=== PATIENT | male | born 1960 | race Caucasian/White ===

== ENCOUNTER → 2016-09-23 | Outpatient (REF) ==
--- NOTE | 2016-09-23 15:10 | REP ---
Clinical: Pain and disability. Technique: AP, lateral, bilateral oblique and sunrise views of the right knee. Findings: Mild arthritic degenerative changes include cortical irregularity to the femoral condyles, increased sclerosis along the medial tibial surface and posterior patellar margin with associated medial compartment and patellofemoral joint space narrowing. No acute fracture or dislocation. AP and lateral views demonstrate a small curvilinear foreign body in the patellar tendon at the level of the proximal tibia. Impression: Mild arthritic degenerative changes. Signed by Dae Conner MD 09/23/2016 03:00 P
--- NOTE | 2016-09-23 15:32 | REP ---
LUMBAR SPINE, THREE VIEWS: HISTORY: Degenerative disc disease. There is no acute fracture or subluxation. The L2-3 through L5-S1 intervertebral discs are decreased in height. Osteophytes are present on L2 through L5. IMPRESSION: Degenerative change as described above. Signed by Jeremy Brooks MD 09/23/2016 03:49 P
== END | disposition home or self-care (01) ==
LOC: M SMT 14:09
PROVIDERS: ATTEND Internal Medicine
DX: Z02.71 Encounter for disability determination (principal)

== ENCOUNTER → 2020-07-01 | Outpatient (REF) | payer MEDICARE ==
[2020-07-01 14:15] LABS: APPEARANCE, URINE CLEAR (CLEAR); BACTERIA, URINE AUTO NEGATIVE (NEGATIVE); BILIRUBIN, URINE AUTO NEGATIVE (NEGATIVE); BLOOD, URINE BLOOD NEGATIVE (NEGATIVE); COLOR, URINE YELLOW (YELLOW); GLUCOSE, URINE (UA) AUTO 1+ mg/dL (NEGATIVE); KETONE, URINE AUTO NEGATIVE (NEGATIVE); LEUKOCYTE ESTERASE, URINE AUTO NEGATIVE (NEGATIVE); MUCUS, URINE SMALL (NEGATIVE); NITRITE, URINE AUTO NEGATIVE (NEGATIVE); PROTEIN, URINE AUTO NEGATIVE (NEGATIVE); RBC, URINE AUTO 0 /HPF (0-3); SPECIFIC GRAVITY URINE AUTO 1.019 (1.002-1.035); SQUAMOUS EPITHELIAL CELL UR AU 0 /HPF (0-6); UROBILINOGEN, URINE AUTO 0.2 mg/dL (0.0-2.0); WBC, URINE AUTO 0 /HPF (0-3)
== END ==
LOC: M SMT 13:13
PROVIDERS: ATTEND Nurse Practitioner Women's Health
DX: R97.20 Elevated prostate specific antigen [PSA] (principal); Z79.899 Other long term (current) drug therapy
CPT/HCPCS: 81001; 87086; G0463

== ENCOUNTER → 2020-08-06 | Outpatient (CLI) | payer MEDICARE ==
--- NOTE | 2020-08-06 12:47 | REPPI ---
INDICATION: ELEVATED PSA Elevated prostate specific antigen levels. COMPARISON: None. TECHNIQUE: Transrectal ultrasound examination. FINDINGS: Examination demonstrates enlarged heterogeneous gland with 6 x 3 x 5 mm hypoechoic nodule in the right mid lateral gland. Gland measures 3.9 x 3.2 x 4.3 cm (28 ml). Ultrasound-guided Biopsy performed by Dr. Strickland included 12 passes with 18 gauge needle after the administration of local anesthetic. No obvious complications during examination as reported by orthopedic brace maker. IMPRESSION: 1. Heterogeneous gland with nodule. 2. Status post biopsy. <Electronically signed by Dae Conner > 08/06/20 1188
== END ==
LOC: M SMT PRO 09:10
PROVIDERS: ATTEND Urology
DX: C61 Malignant neoplasm of prostate (principal)
CPT/HCPCS: 55700; 76872; 76942; G0416

== ENCOUNTER → 2020-08-30 | Outpatient (CLI) | payer MEDICARE ==
[~2020-08-30] MED LIST: ATOR1TAB21 PO; CIPR-249 PO; DOK1CAP7 PO; LISI40TA4 PO; PERCOCET PO
== END ==
LOC: M LABSMTC 11:05
PROVIDERS: ATTEND Anesthesiology
DX: Z01.812 Encounter for preprocedural laboratory examination (principal); Z20.822 Contact with and (suspected) exposure to COVID-19

== ENCOUNTER 2020-09-04 10:50 | Inpatient (IN) | payer MEDICARE ==
[~2020-09-04] VITALS: Ht 185.4 cm; Wt 92.5 kg
[~2020-09-04 10:50] MED LIST changes: -CIPR-249 PO; -DOK1CAP7 PO; +HEPARIN SOD (PORCINE) 5000UNITS/ML 1ML VIAL/SYRINGE SQ ONE; +LISI40TA PO; -LISI40TA4 PO; +LR 1,000 ML IV ONE; -PERCOCET PO; +ceFAZolin SOD 2 GM in IV 1 EA IV ONE
--- OUTSIDE RECORDS SUMMARY | 2020-09-04 11:00 | CCD ---
Author Author [facility] Organization [facility] Address Unknown Phone Unavailable Care Team Providers Care Goat Herder Name Role Phone Aubree Atkinson Unavailable PROBLEMS No Information ALLERGIES No Known Allergies ENCOUNTERS from 1960 to 2020-07-08 Encounter Location Date Provider Diagnosis [facility] [address] [place] [address] Jun Aubree Atkinson Elevated PSA R97.20 IMMUNIZATIONS No Information SOCIAL HISTORY Tobacco Use: Social History Observation Description Date Details (start date - stop date) Uses tobacco in other forms Sex Assigned At : Social History Observation Description Sex Assigned At Unknown Language: Question Answer Notes Languages spoken: Dutch Tenriism: Question Answer Notes Tenriism No sabianist beliefs that would impact health care. Alcohol Screening: Question Answer Notes Did you have a drink containing alcohol in the past year? Ye s Points 5 Interpretation Positive How often did you have six or more drinks on one occas ion in the past year? Less than monthly (1 point) How many drinks did you have on a typica l day when you were drinking in the past year? 5 or 6 (2 points) How often did you have a drink containing alcohol in t he past year? Two to four times a month (2 points) Tobacco Use: Question Answer Notes Are you a: Uses tobacco in other forms chews tobacc o has for about 4 years REASON FOR REFERRAL No Information VITAL SIGNS Weight 203 lbs Jun, Height 65 in Jun, BMI 33.78 kg/m2 Jun, Heart Rate 71 /min Jun, Respiratory Rate 18 /min Jun, Temperature 96.5 degrees Fahrenheit Jun, Oximetry 99% Jun, Blood pressure systolic 124 mm Hg Jun, Blood pressure diastolic 80 mm Hg Jun, MEDICATIONS Medication SIG (Take, Route, Frequency, Duration) Notes Start Da te End Date Status Atorvastatin Calcium 10 MG 1 tablet Orally Once a day for 30 day(s) Active Bactrim DS 800-160 MG 1 tablet Orally _take 1 tab the night before bx and 1 tab the morning of Jun, Active Lisinopril 40 MG 1 tablet Orally Once a day for 30 day(s) Active PROCEDURES No Information RESULTS Component Value Reference Range UA URINALYSIS Reviewed date:07/01/2020 14:20:13 Interpretation: Performing Lab:[facility] [address] [address] , ,[place] [address] URINE CULTURE Reviewed date:07/02/2020 08:57:07 Interpretation: Performing Lab:[facility] [address] [address] , ,[facility] REASON FOR VISIT elevated PSA 6.63 MEDICAL (GENERAL) HISTORY Type Description Date Medical History HTN Medical History chronic back and knee pain Medical History hyperlipidemia Surgical History fracture left wriost Surgical History hernia repair 11/2014 Surgical History left knee menicaus repair Goals Section No Information Health Concerns No Information MEDICAL EQUIPMENT No Information MENTAL STATUS No Information FUNCTIONAL STATUS No Information ASSESSMENTS Encounter Date Diagnosis Assessment Notes Treatment Notes Treatm ent Clinical Notes Jun, Elevated PSA (ICD-10 - R97.20) Patient Educated with: Urology - Transrectal Ultrasound and Needle Biopsy.pdf (Urology - Transrectal Ultrasound and Needle Biopsy.pdf) Jun, Other Prostate biopsy material was printed PLAN OF TREATMENT Medication Medication Name Sig Start Date Stop Date Bactrim DS 800-160 MG 1 tablet Orally _take 1 tab the night before bx and 1 tab the morning of Jun, Treatment Notes Assessment Notes Clinical Notes Elevated PSA Patient Educated with: Urolo gy - Transrectal Ultrasound and Needle Biopsy.pdf (Urology - Transrectal Ultrasound and Needle Biopsy.pdf) Treatment Notes Test Name Order Date SMT PROSTATE BIOPSY 2020-07-08 Next Appt Details TRUS bx Reason: Provider Name:Frederick Strickland, 09:15:00 AM, [address], [place], [address], Provider Name:Frederick Strickland, 01:30:00 PM, [address], [place], [address], Insurance Providers Payer Name Payer Address Payer Phone Insured Name Patient Relati onship to Insured Coverage Start Date Coverage End Date MEDICARE Part A and [address] [facility] [phone] LINNEA LOVE self
--- OUTSIDE RECORDS SUMMARY | 2020-09-04 11:00 | CCD ---
Author Author [facility] Organization [facility] Address Unknown Phone Unavailable Care Team Providers Care Brass Reclaimer Name Role Phone Frederick Strickland Unavailable PROBLEMS Type Condition ICD9-CM Code UNY01-AR Code Onset Dates Condition S tatus SNOMED Code Notes Problem Elevated PSA R97.20 Active 303042658 Problem Prostate cancer C61 Active 220634803 ALLERGIES No Known Allergies ENCOUNTERS from 1960 to 2020-08-15 Encounter Location Date Provider Diagnosis [facility] [address] [place] [address] Aug Frederick Strickland Prostate cancer C61 IMMUNIZATIONS No Information SOCIAL HISTORY Tobacco Use: Social History Observation Description Date Details (start date - stop date) Uses tobacco in other forms Sex Assigned At : Social History Observation Description Sex Assigned At Unknown Language: Question Answer Notes Languages spoken: Georgian Sabianism: Question Answer Notes Sabianism No baptism beliefs that would impact health care. Alcohol [...] FOR REFERRAL No Information VITAL SIGNS Weight 204 lbs Aug, Height 65 in Aug, BMI 33.94 kg/m2 Aug, Heart Rate 96 /min Aug, Respiratory Rate 18 /min Aug, Temperature 97.4 degrees Fahrenheit Aug, Oximetry 97% Aug, Blood pressure systolic 120 mm Hg Aug, Blood pressure diastolic 70 mm Hg Aug, MEDICATIONS Medication SIG (Take, Route, Frequency, Duration) Notes Start Da te End Date Status Atorvastatin Calcium 10 MG 1 tablet Orally Once a day for 30 day(s) Active Lisinopril 40 MG 1 tablet Orally Once a day for 30 day(s) Active Bactrim DS 800-160 MG 1 tablet Orally _take 1 tab the night before bx and 1 tab the morning of Jun, Not-Taking PROCEDURES No Information RESULTS No Results REASON FOR VISIT TRUS f/u MEDICAL (GENERAL) HISTORY Type Description Date Medical [...] Notes Treatment Notes Treatm ent Clinical Notes Aug, Prostate cancer (ICD-10 - C61) - pathology results discussed - patient given reading material on prostate cancer and treatment - f/u in 2 wks to decide on treatment Aug, Other Prostate cancer material was printed,Prostatectomy material was printed,Radiation therapy: external material was printed PLAN OF TREATMENT Treatment Notes Assessment Notes Clinical Notes Prostate cancer - pathology results discussed- patient given reading material on prostate cancer and treatment- f/u in 2 wks to decide on treatment Next Appt Details 2 Weeks Reason:prostate cancer Provider Name:Frederick Strickland, 02:45:00 PM, [address], [place], [address], Follow Up:2 Weeksprostate cancer Insurance Providers Payer Name Payer Address Payer Phone Insured Name Patient Relati onship to Insured Coverage Start Date Coverage End Date MEDICARE Part A and B [address] [facility] [id number] LINNEA LOVE self
--- OUTSIDE RECORDS SUMMARY | 2020-09-04 11:00 | CCD ---
Author Author [facility] Organization [facility] Address Unknown Phone Unavailable Care Team Providers Care Host/Hostess Head Name Role Phone Marco A Frederick Unavailable PROBLEMS Type Condition ICD9-CM Code CVO71-LR Code Onset Dates Condition S tatus SNOMED Code Notes Problem Preop testing Z01.818 Active 670765668 Problem UTI (urinary tract infection) N39.0 Active 68 357586 Problem Elevated PSA R97.20 Active 007836167 Problem Prostate cancer C61 Active 245069795 ALLERGIES No Known Allergies ENCOUNTERS from 1960 to 2020-08-30 Encounter Location Date Provider Diagnosis [facility] [address] [place] [address] Aug Frederick Strickland IMMUNIZATIONS No Information SOCIAL HISTORY Tobacco Use: Social History Observation Description Date Details (start date - stop date) Uses tobacco in other forms Sex Assigned At : Social History Observation Description Sex Assigned At Unknown Language: Question Answer Notes Languages spoken: Albanian Scientologist: Question Answer Notes Scientologist No islam beliefs that would impact health care. Alcohol [...] REASON FOR REFERRAL No Information VITAL SIGNS No information MEDICATIONS Medication SIG (Take, Route, Frequency, Duration) [...] Information RESULTS No Results REASON FOR VISIT Abnormal EKG, UTI MEDICAL (GENERAL) HISTORY Type Description Date Medical History HTN Medical History chronic back and knee pain Medical History hyperlipidemia Surgical History fracture left wriost Surgical History hernia repair 11/2014 Surgical History left knee menicaus repair Goals Section No Information Health Concerns No Information MEDICAL EQUIPMENT No Information MENTAL STATUS No Information FUNCTIONAL STATUS No Information ASSESSMENTS No Information PLAN OF TREATMENT Next Appt Details Provider Name:Frederick Strickland, 11:15:00 AM, [address], [place], [address], Insurance Providers Payer Name Payer Address Payer Phone Insured Name Patient Relati onship to Insured Coverage Start Date Coverage End Date MEDICARE Part A and B [address] [facility] [phone] LINNEA LOVE self
--- OUTSIDE RECORDS SUMMARY | 2020-09-04 11:00 | CCD ---
Author Author [facility] Organization [facility] Address Unknown Phone Unavailable Care Team Providers Care Adzing And Boring Machine Helper Name Role Phone Jose Henry Unavailable PROBLEMS Type Condition ICD9-CM Code OJX04-OH Code Onset Dates Condition S tatus SNOMED Code Notes Problem Prediabetes R73.03 Active 170631428 Problem Body mass index (BMI) 34.0-34.9, adult Z68.34 Active 568643857768521 Problem Hyperlipidemia, unspecified hyperlipidemia type E7 8.5 Active 45377865 Problem Essential tremor G25.0 Active 092920483 Problem Essential (primary) hypertension I10 Active 71783290 Problem Tobacco use Z72.0 Active 928374189 ALLERGIES No Known Allergies ENCOUNTERS from 1960 to 2020-06-06 Encounter Location Date Provider Diagnosis [address] [address] December, Josejohn Henry Acute right-sided low back p ain without sciatica M54.5 ; Essential (primary) hypertension I10 ; Hyperlipidemia, unspecified hyperlipidemia type E78.5 ; Essential tremor G25.0 ; Tobacco use Z72.0 and Body mass index (BMI) of 35.0-35.9 in adult Z68.35 IMMUNIZATIONS No Information SOCIAL HISTORY Tobacco Use: Social History Observation Description Date Details (start date - stop date) Light tobacco smoker Sex Assigned At : Social History Observation Description Sex Assigned At Unknown Alcohol Screening: Question Answer Notes Did you have a drink containing alcohol in the past year? Ye s Points 7 Interpretation Positive How often did you have six or more drinks on one occas ion in the past year? Monthly (2 points) How many drinks did you have on a typica l day when you were drinking in the past year? 5 or 6 (2 points) How often did you have a drink containing alcohol in t he past year? Two to three times per week (3 points) Tobacco Use: Question Answer Notes Are you a: light tobacco smoker REASON FOR REFERRAL No Information VITAL SIGNS BMI 35.29 kg/m2 December, Heart Rate 68 /min December, Weight 204 lbs December, Height 63.75 in December, Blood pressure systolic 130 mm Hg December, Blood pressure diastolic 90 mm Hg December, MEDICATIONS Medication SIG (Take, Route, Frequency, Duration) Start Date En d Date Status Lipitor 10 MG 1 tablet Orally Once a day for 90 days Apr, Active Lisinopril 40 mg 1 tablet Orally Once a day for 90 days Active PROCEDURES No Information RESULTS No Results REASON FOR VISIT back pain, not workers comp MEDICAL (GENERAL) HISTORY Type Description Date Medical History Essential (primary) hypertension Medical History Hypercholesteremia Medical History Seasonal allergies Medical History Chronic back and knee pain - disabled si nce 2016 Surgical History fracture-left wrist 01/10 Surgical History hernia 11/21 Goals Section No Information Health Concerns No Information MEDICAL EQUIPMENT No Information MENTAL STATUS No Information FUNCTIONAL STATUS No Information ASSESSMENTS Encounter Date Diagnosis Notes December, Hyperlipidemia, unspecified hyperlipidem ia type (ICD-10 - E78.5) December, Essential (primary) hypertension (ICD-10 - I10) December, Essential tremor (ICD-10 - G25.0) December, Acute right-sided low back pain without sciatica (ICD-10 - M54.5) December, Body mass index (BMI) of 35.0-35.9 in ad ult (ICD-10 - Z68.35) December, Tobacco use (ICD-10 - Z72.0) PLAN OF TREATMENT Treatment Notes Assessment Notes Clinical Notes Acute right-sided low back pain without sciatica Discussed with patient that with combination of arthirtis, disc disease and overdoing of his back can cause displacement and pinched nerve. Recommended to see PT for further care. Advised to avoid bending and do turning and twsiting in controlled manner. If no improvement from PT we can get xray to further evaluate Next Appt Details change 3 mon f/u to 3 mon from today Yessy son: Provider Name:Jose Birdtti, 2020-07-09 8 08:45:00 AM, [address] [place] [address], [phone], Provider Name:Jose Henry, 2021-04-10 2 08:30:00 AM, [address] [place] [address], [phone], Provider Name:Jose Henry, 2021-04-10 2 08:45:00 AM, [address] [place] [address], [phone], Insurance Providers Payer Name Payer Address Payer Phone Insured Name Patient Relati onship to Insured Coverage Start Date Coverage End Date Medicare [facility] [facility] [address] [facility] [phone] Corey Reece self 2018
--- OUTSIDE RECORDS SUMMARY | 2020-09-04 11:00 | CCD ---
Author Author [facility] Organization [facility] Address Unknown Phone Unavailable Care Team Providers Care Container Maker Name Role Phone Frederick Strickland Unavailable PROBLEMS Type Condition ICD9-CM Code OHH14-DR Code Onset Dates Condition S tatus SNOMED Code Notes Problem Elevated PSA R97.20 Active 932711146 ALLERGIES No Known Allergies ENCOUNTERS from 1960 to 2020-08-08 Encounter Location Date Provider Diagnosis [facility] [address] [place] [address] Jul Frederick Strickland Elevated PSA R97.20 IMMUNIZATIONS No Information SOCIAL HISTORY Tobacco Use: Social History Observation Description Date Details (start date - stop date) Uses tobacco in other forms Sex Assigned At : Social History Observation Description Sex Assigned At Unknown Language: Question Answer Notes Languages spoken: Portuguese Yarsanism: Question Answer Notes Yarsanism No rastafari beliefs that would impact health care. Alcohol [...] FOR REFERRAL No Information VITAL SIGNS Weight 202.8 lbs Jul, Height 65 in Jul, BMI 33.74 kg/m2 Jul, Heart Rate 84 /min Jul, Respiratory Rate 18 /min Jul, Temperature 97.2 degrees Fahrenheit Jul, Oximetry 97% Jul, Blood pressure systolic 158 mm Hg Jul, Blood pressure diastolic 92 mm Hg Jul, MEDICATIONS Medication SIG (Take, Route, Frequency, Duration) Notes Start Da te End Date Status Atorvastatin Calcium 10 MG 1 tablet Orally Once a day for 30 day(s) Active Lisinopril 40 MG 1 tablet Orally Once a day for 30 day(s) Active Bactrim DS 800-160 MG 1 tablet Orally _take 1 tab the night before bx and 1 tab the morning of Jun, Active PROCEDURES No Information RESULTS No Results REASON FOR VISIT Elevated PSA MEDICAL (GENERAL) HISTORY Type Description Date Medical [...] Notes Treatment Notes Treatm ent Clinical Notes Jul, Elevated PSA (ICD-10 - R97.20) PLAN OF TREATMENT Treatment Notes Test Name Order Date Pathology Request For Service (Urology Only) 2020-07-11 1 Next Appt Details Provider Name:Frederick Strickland, 01:30:00 PM, [address], [place], [address], Insurance Providers Payer Name Payer Address Payer Phone Insured Name Patient Relati onship to Insured Coverage Start Date Coverage End Date MEDICARE Part A and B [address] [facility] [id number] LINNEA LOVE self
--- OUTSIDE RECORDS SUMMARY | 2020-09-04 11:00 | CCD ---
Author Author [facility] Organization [facility] Address Unknown Phone Unavailable Care Team Providers Care Senior Project Manager Engineering Name Role Phone Jose Henry Unavailable PROBLEMS Type Condition ICD9-CM Code GIF86-CC Code Onset Dates Condition S tatus SNOMED Code Notes Problem Hyperlipidemia, unspecified hyperlipidemia type E7 8.5 Active 30034620 Problem Prediabetes R73.03 Active 533648696 Problem Right medial knee pain M25.561 Active 16758712 Problem Essential tremor G25.0 Active 589171987 Problem Essential (primary) hypertension I10 Active 91362988 Problem Tobacco use Z72.0 Active 281282296 Problem Body mass index (BMI) 34.0-34.9, adult Z68.34 Active 221797300142016 ALLERGIES No Known Allergies ENCOUNTERS from 1960 to 2020-08-18 Encounter Location Date Provider Diagnosis [facility] [address] [address] Jul, Jose Elaine Hyperlipidemia, unspecified hyperlipidemia type E78.5 ; Prediabetes R73.03 ; Essential (primary) hypertension I10 ; Right medial knee pain M25.561 and Elevated PSA R97.20 IMMUNIZATIONS No Information SOCIAL [...] FOR REFERRAL No Information VITAL SIGNS BMI 35.08 kg/m2 Jul, Heart Rate 60 /min Jul, Weight 202.8 lbs Jul, Height 63.75 in Jul, Blood pressure systolic 134 mm Hg Jul, Blood pressure diastolic 80 mm Hg Jul, MEDICATIONS Medication SIG (Take, Route, Frequency, Duration) Notes Start Da te End Date Status Lipitor 20 MG 1 tablet Orally Once a day for 90 days 2019 Active Lisinopril 40 mg 1 tablet Orally Once a day Active PROCEDURES No Information RESULTS Component Value Reference Range Lipid Panel And Chol/HDL Ratio Reviewed date:07/26/2020 09:50:40 Interpretation: Performing Lab:[facility] Cholesterol, Total 209 HDL Cholesterol 29 Triglycerides 135 LDL Cholesterol Calc 153 T. Chol/HDL Ratio 7.2 VLDL Cholesterol Randall 180 Hemoglobin A1c Reviewed date:07/27/2020 22:18:24 Interpretation: Performing Lab:[facility] Hemoglobin A1c 6.4 Glucose, cholestech machine Reviewed date:07/27/2020 22:18:36 Interpretation: Performing Lab:[facility] Medicine glucose 143 REASON FOR VISIT 3 month f/u fasting, knee pain rt MEDICAL (GENERAL) HISTORY Type Description Date Medical [...] Treatment Notes Treatm ent Clinical Notes Jul, Hyperlipidemia, unspecified hyperlipidemia type (ICD-10 - E78.5) Poorly controlled with the switch from prava to atorvastatin, and we will increase from 10 to 20mg to decrease it further - recheck in 3 months here. Jul, Prediabetes (ICD-10 - R73.03) A1C is up from 6.2 to 6.4 today and advised weight loss and diet to control - no medication now. Jul, Essential (primary) hypertension (ICD-10 - I10) Warned against heavy doses of NSAIDs for the knee - and prefer OTC voltaren - biofreeze, and topicals Jul, Right medial knee pain (ICD-10 - M25.561) Patient with need for PT at this point, doesn't want while he is awaiting the bx of the prostate. Jul, Elevated PSA (ICD-10 - R97.20) Going for bx here soon. Get records from Nadine chan in [facility] urolog. PLAN OF TREATMENT Medication Medication Name Sig Start Date Stop Date Lipitor 20 MG 1 tablet Orally Once a day for 90 days Apr, Lisinopril 40 mg 1 tablet Orally Once a day Treatment Notes Assessment Notes Clinical Notes Hyperlipidemia, unspecified hyperlipidemia type Poorly controlled with the switch from prava to atorvastatin, and we will increase from 10 to 20mg to decrease it further - recheck in 3 months here. Prediabetes A1C is up from 6.2 t o 6.4 today and advised weight loss and diet to control - no medication now. Essential (primary) hypertension Warned against heavy doses of NSAIDs for the knee - and prefer OTC voltaren - biofreeze, and topicals Right medial knee pain Patient with need for PT at this point, doesn't want while he is awaiting the bx of the prostate. Elevated PSA Going for bx here so on. Get records from Nadine chan in [facility] urolog. Treatment Notes Test Name Order Date Urine microalbumin/creatinine 2020-08-18 Next Appt Details 3 Months, get note from Dr. Strickland uro [facility] Reason: Provider Name:Jose Henry, 2020-10-08 3 08:45:00 AM, [address] [place] [address], [phone], Provider Name:Jose Henry, 2021-04-10 2 08:30:00 AM, [address] [place] [address], [phone], Provider Name:Jose Henry, 2021-04-10 2 08:45:00 AM, [address] [place] [address], [phone], Insurance Providers Payer Name Payer Address Payer Phone Insured Name Patient Relati onship to Insured Coverage Start Date Coverage End Date Medicare [employer] [address] [place] [phone] Corey Reece self 2018
--- OUTSIDE RECORDS SUMMARY | 2020-09-04 11:00 | CCD ---
Author Author [facility] Organization [facility] Address Unknown Phone Unavailable Care Team Providers Care Real Estate Officer Name Role Phone Marco ARaoin Unavailable PROBLEMS Type Condition ICD9-CM Code [id number] Code Onset Dates Condition S tatus SNOMED Code Notes Problem Preop testing Z01.818 Active 734015552 Problem UTI (urinary tract infection) N39.0 Active 68 454987 Problem Elevated PSA R97.20 Active 813587691 Problem Prostate cancer C61 Active 053530329 ALLERGIES No Known Allergies ENCOUNTERS from 1960 to 2020-08-24 Encounter Location Date Provider Diagnosis [facility] [address] [place] [address] [place] [address] Aug Frederick Strickland Prostate cancer C61 ; Preop testing Z01. 818 and UTI (urinary tract infection) N39.0 IMMUNIZATIONS No Information SOCIAL HISTORY Tobacco Use: Social History Observation Description Date Details (start date - stop date) Uses tobacco in other forms Sex Assigned At : Social History Observation Description Sex Assigned At Unknown Language: Question Answer Notes Languages spoken: Estonian Rastafarian: Question Answer Notes Rastafarian No rastafari beliefs that would impact health [...] Information RESULTS No Results REASON FOR VISIT Surgery MEDICAL (GENERAL) HISTORY Type Description Date Medical [...] Notes Aug, Prostate cancer (ICD-10 - C61) Aug, Preop testing (ICD-10 - Z01.818) Aug, UTI (urinary tract infection) (ICD-10 - N39.0) PLAN OF TREATMENT Treatment Notes Test Name Order Date CBC - Complete Blood Count 2020-08-24 PT & APTT 2020-08-24 URINE CULTURE 2020-08-24 Basic Metabolic Profile (BMP) 2020-08-24 [facility] Chest, 2 view (PA\Lat) 2020-08-24 Electrocardiogram (EKG) 2020-08-24 Next Appt Details Provider Name:Frederick Strickland, 11:15:00 AM, [address], [place], [phone], Insurance Providers Payer Name Payer Address Payer Phone Insured Name Patient Relati onship to Insured Coverage Start Date Coverage End Date MEDICARE Part A and B [address] [facility] [id number] [phone] LINNEA LOVE self
--- OUTSIDE RECORDS SUMMARY | 2020-09-04 11:00 | CCD ---
Author Author [facility] Organization [facility] Address Unknown Phone Unavailable Care Team Providers Care Product Development Intern Name Role Phone CatiaJose myers Unavailable PROBLEMS Type Condition ICD9-CM Code [id number] Code Onset Dates Condition S tatus SNOMED Code Notes Problem Hyperlipidemia, unspecified hyperlipidemia type E7 8.5 Active 82729330 Problem Prediabetes R73.03 Active 834776060 Problem Right medial knee pain M25.561 Active 65595436 Problem Essential tremor G25.0 Active 612554466 Problem Essential (primary) hypertension I10 Active 05529253 Problem Tobacco use Z72.0 Active 773660860 Problem Body mass index (BMI) 34.0-34.9, adult Z68.34 Active 690274220037920 ALLERGIES No Known Allergies ENCOUNTERS from 1960 to 2020-08-23 Encounter Location Date Provider Diagnosis [facility] [address] [address] Aug, Jose Henry Essential (primary) hyperten donna I10 and Hyperlipidemia, unspecified hyperlipidemia type E78.5 IMMUNIZATIONS No Information SOCIAL HISTORY Tobacco Use: [...] Orally Once a day for 90 days 18 2019 Active Lisinopril 40 mg 1 tablet Orally Once a day Active PROCEDURES No Information RESULTS Component Value Reference Range COMPLETE BLOOD COUNT Reviewed date:08/23/2020 20:26:38 Interpretation: Performing Lab:[facility] WHITE BLOOD COUNT 8.87 3.80-10.80 RED BLOOD COUNT 5.22 4.69-6.13 HEMOGLOBIN 16.0 14.1-18.1 HEMATOCRIT 48.5 43.5-53.7 MEAN CELL VOLUME 93 80-97 MEAN CORPUSCULAR HEMOGLOBIN 30.7 27.0-31.2 MEAN CORPUSCULAR HGB CONC 33.0 31.8-35.4 RBC DISTR.WIDTH 12.5 9.0-16.0 PLATELET COUNT 264 150-400 MEAN PLATELET VOLUME 10.8 7.2-11.1 GRAN % 54.6 37.0-74.9 LYMPH % 28.6 10.0-50.0 MONO % 10.1 0.0-12.0 EOS % 5.1 0.0-7.0 BASO % 0.6 0.0-2.5 GRAN # 4.8 2.0-6.9 LYMPH # 2.5 0.6-3.4 MONO # 0.9 0.0-0.9 EOS # 0.5 0.0-0.7 BASO # 0.1 0.0-0.2 BASIC METABOLIC PROFILE Reviewed date:08/23/2020 20:26:38 Interpretation: Performing Lab:[facility] GLUCOSE 97 74-106 BLOOD UREA NITROGEN 25 7-18 CREATININE 1.14 0.55-1.30 eGFR 65 >60 SODIUM 138 136-145 POTASSIUM 4.6 3.5-5.1 CHLORIDE 101 96-109 CARBON DIOXIDE 30 21-32 CALCIUM 10.2 8.1-9.7 REASON FOR VISIT preop workup needed MEDICAL (GENERAL) HISTORY Type Description Date Medical History Essential (primary) hypertension Medical History Hypercholesteremia Medical History Seasonal allergies Medical History Chronic back and knee pain - disabled si nce 2016 Surgical History fracture-left wrist 6/04 Surgical History hernia 11/21 Goals Section No Information Health Concerns No Information MEDICAL EQUIPMENT No Information MENTAL STATUS No Information FUNCTIONAL STATUS No Information ASSESSMENTS Encounter Date Diagnosis Assessment Notes Treatment Notes Treatm ent Clinical Notes Aug, Essential (primary) hypertension (ICD-10 - I10) Aug, Hyperlipidemia, unspecified hyperlipidemia type (ICD-10 - E78.5) PLAN OF TREATMENT Medication Medication Name Sig Start Date Stop Date Lipitor 20 MG 1 tablet Orally Once a day for 90 days Apr, Lisinopril 40 mg 1 tablet Orally Once a day Treatment Notes Test Name Order Date Prothrombin Time (PT) 2020-08-23 PTT 2020-08-23 URINE CULTURE 2020-08-23 CHEST, (2 VIEWS) 2020-08-23 Next Appt Details Provider Name:Jose Henry, 2020-08-10 0 11:30:00 AM, [address] [place] [address], [phone], Provider Name:Jose Henry, 2020-10-08 3 08:45:00 AM, [address] [place] [address], [phone], Provider Name:Jose Henry, 2021-04-10 2 08:30:00 AM, [address] [place] [address], [phone], Provider Name:Jose Henry, 2021-04-10 2 08:45:00 AM, [address] [place] [address], [phone], Insurance Providers Payer Name Payer Address Payer Phone Insured Name Patient Relati onship to Insured Coverage Start Date Coverage End Date Medicare [employer] [address] [place] [address] [phone] Corey Reece 2018
--- OUTSIDE RECORDS SUMMARY | 2020-09-04 11:00 | CCD ---
Author Author [facility] Organization [facility] Address Unknown Phone Unavailable Care Team Providers Care Sheet Rock Installation Helper Name Role Phone Elaine Jose Unavailable PROBLEMS Type Condition ICD9-CM Code JXS27-[place] Code Onset Dates Condition S tatus SNOMED Code Notes Problem Hyperlipidemia, unspecified hyperlipidemia type E7 8.5 Active 16137385 Problem Essential tremor G25.0 Active 327582154 Problem Morbid obesity due to excess calories E66.01 Ac tive 163845507 Problem Elevated prostate specific antigen [PSA] R97.20 Active 907405637 Problem Essential (primary) hypertension I10 Active 25803078 Problem Tobacco use Z72.0 Active 323185523 Problem Prediabetes R73.03 Active 964940931 Problem Right medial knee pain M25.561 Active 02545238 ALLERGIES No Known Allergies ENCOUNTERS from 1960 to 2020-08-29 Encounter Location Date Provider Diagnosis [address] [address] Aug, Jose Henry IMMUNIZATIONS No Information SOCIAL HISTORY Tobacco Use: [...] Notes Start Da te End Date Status Bactrim DS 800-160 MG 1 tablet Orally Twice a day for 7 day(s) Aug, Aug, Active Lipitor 20 MG 1 tablet Orally Once a day Apr, Active Lisinopril 40 mg 1 tablet Orally Once a day Active PROCEDURES No Information RESULTS No Results REASON FOR VISIT positive urine pre-op MEDICAL (GENERAL) HISTORY Type Description Date Medical History Essential (primary) hypertension Medical History Hypercholesteremia Medical History Seasonal allergies Medical History Chronic back and knee pain - disabled si nce 2016 Surgical History fracture-left wrist 01/10 Surgical History hernia 11/21 Surgical History prostatectomy robotic assisted lap 2020 Goals Section No Information Health Concerns No Information MEDICAL EQUIPMENT No Information MENTAL STATUS No Information FUNCTIONAL STATUS No Information ASSESSMENTS No Information PLAN OF TREATMENT Medication Medication Name Sig Start Date Stop Date Bactrim DS 800-160 MG 1 tablet Orally Twice a day for 7 day(s) 2 Aug, Aug, Lisinopril 40 mg 1 tablet Orally Once a day Lipitor 20 MG 1 tablet Orally Once a day Apr, Next Appt Details Provider Name:Jose Henry, 2020-10-08 3 08:45:00 AM, [address] [place] [address], [phone], Provider Name:Jose Henry 2021-04-10 2 08:30:00 AM, [address] [place] [address], [phone], Provider Name:Jose Henry 2021-04-10 2 08:45:00 AM, [address] [place] [address], [phone], Insurance Providers Payer Name Payer Address Payer Phone Insured Name Patient Relati onship to Insured Coverage Start Date Coverage End Date Medicare [employer] [address] [place] [address] [phone] Corey Reece self 2018
--- OUTSIDE RECORDS SUMMARY | 2020-09-04 11:00 | CCD ---
Author Author [facility] Organization [facility] Address Unknown Phone Unavailable Care Team Providers Care Pull Through Hooker Name Role Phone Jose Henry Unavailable PROBLEMS Type Condition ICD9-CM Code LAE01-QR Code Onset Dates Condition S tatus SNOMED Code Notes Problem Prediabetes R73.03 Active 149454231 Problem Body mass index (BMI) 34.0-34.9, adult Z68.34 Active 059891604029654 Problem Hyperlipidemia, unspecified hyperlipidemia type E7 8.5 Active 09278268 Problem Essential tremor G25.0 Active 506680286 Problem Essential (primary) hypertension I10 Active 50262335 Problem Tobacco use Z72.0 Active 098680654 ALLERGIES No Known Allergies ENCOUNTERS from 1960 to 2020-07-09 Encounter Location Date Provider Diagnosis [facility] [address] [address] Apr, Josejohn Henry Encounter for general adult medical examination without abnormal findings Z00.00 and Essential (primary) hypertension I10 IMMUNIZATIONS No Information SOCIAL HISTORY Tobacco Use: [...] FOR REFERRAL No Information VITAL SIGNS BMI 34.91 kg/m2 Apr, Heart Rate 64 /min Apr, Weight 201.8 lbs Apr, Height 63.75 in Apr, Blood pressure systolic 130 mm Hg Apr, Blood pressure diastolic 94 mm Hg Apr, MEDICATIONS Medication SIG (Take, Route, Frequency, Duration) Notes Start Da te End Date Status Lipitor 10 MG 1 tablet Orally Once a day for 90 days 2019 Active Lisinopril 40 mg 1 tablet Orally Once a day for 90 days Active PROCEDURES No Information RESULTS Component Value Reference Range ekg Reviewed date:04/26/2020 14:24:02 Interpretation: Performing Lab:[facility] Urine dip Reviewed date:04/26/2020 14:24:07 Interpretation: Performing Lab:[facility] Leuk - NIT - URO 0.2 PRO 15+ pH 5.0 Blood - SP GR 1.025 KET - PAULETTE - Glucose - Color REASON FOR VISIT MCR Wellness Exam MEDICAL (GENERAL) HISTORY Type Description Date Medical [...] Notes Treatment Notes Treatm ent Clinical Notes Apr, Encounter for general adult medical examination without abnormal findings (ICD-10 - Z00.00) The Annual Wellness Form that the patient completed was reviewed with the patient. A list of risk factors and recommendations was given to the patient. A preventative screening schedule was given to the patient. Appropriate tests and referrals were ordered with the patient's permission. There was no concern for memory impairment, Based on the PHQ-9 there was no evidence for untreated depression, over 8 min was spent reviewing and discussing this. Based on the AUDIT-C there was no evidence for alcohol abuse, over 8 min was spent reviewing and discussing this. Pt decline PT referral. Pt decline news agent referral. The patient has been screened for falls. The patient is not at risk for falls. Intensive behavioral therapy for Cardiovascular disease was counselled with the patient for over 8 minutes. Apr, Essential (primary) hypertension (ICD-10 - I10) PLAN OF TREATMENT Treatment Notes Assessment Notes Clinical Notes Encounter for general adult medical examination without abno rmal findings The Annual Wellness Form that the patient completed was reviewed with the patient. A list of risk factors and recommendations was given to the patient. A preventative screening schedule was given to the patient. Appropriate tests and referrals were ordered with the patient's permission. There was no concern for memory impairment, Based on the PHQ-9 there was no evidence for untreated depression, over 8 min was spent reviewing and discussing this. Based on the AUDIT-C there was no evidence for alcohol abuse, over 8 min was spent reviewing and discussing this. Pt decline PT referral. Pt decline news agent referral. The patient has been screened for falls. The patient is not at risk for falls. Intensive behavioral therapy for Cardiovascular disease was counselled with the patient for over 8 minutes. Next Appt Details 1 Year Reason: Provider Name:Jose Henry, 2020-07-09 8 08:45:00 AM, [address] [place] [address], [phone], Provider Name:Jose Henry, 2021-04-10 2 08:30:00 AM, [address] [place] [address], [phone], Provider Name:Jose Henry, 2021-04-10 2 08:45:00 AM, [address] [place] [address], [phone], Insurance Providers Payer Name Payer Address Payer Phone Insured Name Patient Relati onship to Insured Coverage Start Date Coverage End Date Medicare [facility] [address] [place] [address] [phone] Corey Reece self 2018
--- OUTSIDE RECORDS SUMMARY | 2020-09-04 11:00 | CCD ---
Author Author [facility] Organization [facility] Address Unknown Phone Unavailable Care Team Providers Care Senior Painter Name Role Phone Jose Henry Unavailable PROBLEMS Type Condition ICD9-CM Code ETQ42-BM Code Onset Dates Condition S tatus SNOMED Code Notes Problem Prediabetes R73.03 Active 937915706 Problem Body mass index (BMI) 34.0-34.9, adult Z68.34 Active 732775421890606 Problem Hyperlipidemia, unspecified hyperlipidemia type E7 8.5 Active 03301961 Problem Essential tremor G25.0 Active 595630784 Problem Essential (primary) hypertension I10 Active 64176497 Problem Tobacco use Z72.0 Active 020261266 ALLERGIES No Known Allergies ENCOUNTERS from 1960 to 2020-06-17 Encounter Location Date Provider Diagnosis [facility] [address] [address] Jun, Jose Henry IMMUNIZATIONS No Information SOCIAL HISTORY [...] Information RESULTS No Results REASON FOR VISIT referral cancellation MEDICAL (GENERAL) HISTORY Type Description Date Medical [...] PLAN OF TREATMENT Next Appt Details Provider Name:Jose Henry, 2020-07-09 8 08:45:00 AM, [address] [place] [address], [phone], Provider Name:Jose Henry, 2021-04-10 2 08:30:00 AM, [address] [place] [address], [phone], Provider Name:Jose Henry, 2021-04-10 2 08:45:00 AM, [address] [place] [address], [phone], Insurance Providers Payer Name Payer Address Payer Phone Insured Name Patient Relati onship to Insured Coverage Start Date Coverage End Date Medicare [employer] [address] [place] [address] [phone] Corey Reece self 2018
--- OUTSIDE RECORDS SUMMARY | 2020-09-04 11:01 | CCD ---
Author Author [facility] Organization [facility] Address Unknown Phone Unavailable Care Team Providers Care Net Application Support Specialist Name Role Phone Jacquie Appiah MD Unavailable Unavailable Jacquie Appiah MD Unavailable Unavailable Jacquie Appiah MD Unavailable Unavailable Jacquie Appiah MD Unavailable Unavailable Jacquie Appiah MD Unavailable Unavailable Jacquie Appiah MD Unavailable Unavailable Jacquie Appiah MD Unavailable Unavailable Jacquie Appiah MD Unavailable Unavailable Corey Henry MD Unavailable Unavailable Corey Henry MD Unavailable Unavailable Corey Henry MD Unavailable Unavailable Corey Henry MD Unavailable Unavailable Corey Henry MD Unavailable Unavailable Corey Henry MD Unavailable Unavailable Corey Henry MD Unavailable Unavailable Corey Henry MD Unavailable Unavailable Corey Henry MD Unavailable Unavailable Corey Henry MD Unavailable Unavailable Corey Henry MD Unavailable Unavailable Corey Henry MD Unavailable Unavailable Corey Henry MD Unavailable Unavailable Corey Henry MD Unavailable Unavailable Corey Henry MD Unavailable Unavailable Corey Henry MD Unavailable Unavailable Corey Henry MD Unavailable Unavailable Corey Henry MD Unavailable Unavailable Corey Henry MD Unavailable Unavailable Corey Henry MD Unavailable Unavailable Corey Henry MD Unavailable Unavailable oCrey Henry MD Unavailable Unavailable Corey Henry MD Unavailable Unavailable Corey Henry MD Unavailable Unavailable Corey Henry MD Unavailable Unavailable Corey Henry MD Unavailable Unavailable Corey Henry MD Unavailable Unavailable Corey Henry MD Unavailable Unavailable Corey Henry MD Unavailable Unavailable Corey Henry MD Unavailable Unavailable Corey Henry MD Unavailable Unavailable Corey Henry MD Unavailable Unavailable Corey Henry MD Unavailable Unavailable Corey Henry MD Unavailable Unavailable Corey Henry MD Unavailable Unavailable Corey Henry MD Unavailable Unavailable Emerson ARREOLA MD Unavailable Unavailable Emerson ARREOLA MD Unavailable Unavailable Emerson ARREOLA MD Unavailable Unavailable Emerson ARREOLA MD Unavailable Unavailable Emerson ARREOLA MD Unavailable Unavailable Emerson ARREOLA MD Unavailable Unavailable Emerson ARREOLA MD Unavailable Unavailable Emerson ARREOLA MD Unavailable Unavailable Emerson ARREOLA MD Unavailable Unavailable Emerson ARREOLA MD Unavailable Unavailable Emerson ARREOLA MD Unavailable Unavailable Emerson ARREOLA MD Unavailable Unavailable Emerson ARREOLA MD Unavailable Unavailable Emerson ARREOLA MD Unavailable Unavailable Emerson ARREOLA MD Unavailable Unavailable Emerson ARREOLA MD Unavailable Unavailable Emerson ARREOLA MD Unavailable Unavailable Emerson ARREOLA MD Unavailable Unavailable Emerson ARREOLA MD Unavailable Unavailable Emerson ARREOLA MD Unavailable Unavailable Emerson ARREOLA MD Unavailable Unavailable Emerson ARREOLA MD Unavailable Unavailable Emerson ARREOLA MD Unavailable Unavailable Emerson ARREOLA MD Unavailable Unavailable Emerson ARREOLA MD Unavailable Unavailable Emerson ARREOLA MD Unavailable Unavailable Emerson ARREOLA MD Unavailable Unavailable Emerson ARREOLA MD Unavailable Unavailable Emerson ARREOLA MD Unavailable Unavailable Emerson ARREOLA MD Unavailable Unavailable Emerson ARREOLA MD Unavailable Unavailable Emerson ARREOLA MD Unavailable Unavailable Emerson ARREOLA MD Unavailable Unavailable Emerson ARREOLA MD Unavailable Unavailable Emerson ARREOLA MD Unavailable Unavailable Emerson ARREOLA MD Unavailable Unavailable Emerson ARREOLA MD Unavailable Unavailable Emerson ARREOLA MD Unavailable Unavailable Emerson ARREOLA MD Unavailable Unavailable Emerson ARREOLA MD Unavailable Unavailable Emerson ARREOLA MD Unavailable Unavailable Re-disclosure Warning The records that you are about to access may contain information from federally-assisted alcohol or drug abuse programs. If such information is present, then the following federally mandated warning applies: This information has been disclosed to you from records protected by federal confidentiality rules (42 CFR part 2). The federal rules prohibit you from making any further disclosure of this information unless further disclosure is expressly permitted by the written consent of the person to whom it pertains or as otherwise permitted by 42 CFR part 2. A general authorization for the release of medical or other information is NOT sufficient for this purpose. The Federal rules restrict any use of the information to criminally investigate or prosecute any alcohol or drug abuse patient.The records that you are about to access may contain highly sensitive health information, the redisclosure of which is protected by Article 27-F of the [facility] Public Health law. If you continue you may have access to information: Regarding HIV / AIDS; Provided by facilities licensed or operated by the [facility] Office of Mental Health; or Provided by the [facility] Office for People With Developmental Disabilities. If such information is present, then the following [facility] mandated warning applies: This information has been disclosed to you from confidential records which are protected by state law. State law prohibits you from making any further disclosure of this information without the specific written consent of the person to whom it pertains, or as otherwise permitted by law. Any unauthorized further disclosure in violation of state law may result in a fine or fdc sentence or both. A general authorization for the release of medical or other information is NOT sufficient authorization for further disc losure. Encounters Encounter Providers Location Date Indications Data Source(s ) Unknown [address] [facility], [facility] [phone] 08/28/2020 12:00:00 AM EST eCW1 ([facility]) Outpatient [address] [place] [address] 1 [phone] 08/28/2020 12:00:00 AM EST eCW1 ([facility]) Outpatient Attender: Jose Henry MDReferrer: KAITY CASEY MD SURG-FLORENCIO 08/23/2020 12:48:00 PM EST [facility]. Outpatient [address] [place] [address] 1 [phone] 08/23/2020 12:00:00 AM EST eCW1 ([facility]) Unknown [address] [facility] [address] 08/16/2020 12:00:00 AM EST eCW1 ([facility]) (Trus F/U) Urology [address] [place] [phone] 08/13/2020 12:00:00 AM EST eCW1 ([facility]) (Trus Bx1) Urology [address] [place] [phone] 08/06/2020 12:00:00 AM EST eCW1 ([facility]) Outpatient [address] [place] [address] 1 [phone] 07/26/2020 12:00:00 AM EST eCW1 ([facility]) Outpatient [address] [facility] [address] 07/01/2020 12:00:00 AM EST eCW1 ([facility]) Outpatient [address] [place] [address] 1 [phone] 06/17/2020 12:00:00 AM EST eCW1 ([facility]) Outpatient Attender: Kajal VILLACAMATT-LABCOVLAW 2019 09:00:00 AM EST - 06/14/2020 12:32:00 PM EST ELEVATED PSA, PRE OP [facility] ELEVATED PSA, PRE OP Patient discharged. Outpatient Attender: Kajal MEYERS 020 09:58:00 AM EDT - 05/13/2020 09:59:00 AM EDT R97.20 [facility] R97.20 Patient discharged. Outpatient Attender: Kajal MEYERS 020 10:44:00 AM EDT - 05/02/2020 10:45:00 AM EDT R97.20 [facility] R97.20 Patient discharged. Outpatient Attender: Jose Henry MD SURG-LAB 04/30/2020 08:05:00 AM EDT [facility]. Outpatient [address] [place] [address] 1 [phone] 04/30/2020 12:00:00 AM EDT eCW1 ([facility]) Outpatient [address] [place] [address] 1 [phone] 04/26/2020 12:00:00 AM EDT eCW1 ([facility]) [address] [address] 04/26/2020 12:00:00 AM EDT eCW1 ([facility]) Outpatient [address] [place] [address] 1 [phone] 03/26/2020 12:00:00 AM EDT eCW1 ([facility]) [address] [address] 01/05/2020 12:00:00 AM EDT eCW1 ([facility]) Outpatient Attender: Jose Henry MD [id number]-[id number]-KZY 12/28 12:00:00 AM EDT - 01/07/2020 12:00:00 AM EDT [facility]. Patient discharged. Outpatient [address] [place] [address] 1 [phone] 12/26/2019 12:00:00 AM EDT eCW1 ([facility]) [address] [address] 12/01/2019 12:00:00 AM EDT eCW1 ([facility]) [address] [address] 10/27/2019 12:00:00 AM EDT eCW1 ([facility]) [address] [address] 10/26/2019 12:00:00 AM EDT eCW1 ([facility]) [address] [address] 07/26/2019 12:00:00 AM EST eCW1 ([facility]) Medications Medication Brand Name Start Date Product Form Dose Route Admi nistrative Instructions Pharmacy Instructions Status Indications Reaction Description Data Source(s) Sulfamethoxazole 800 MG / Trimethoprim 1 60 MG Oral Tablet [Bactrim] Bactrim DS 800-160 MG Bactrim DS 800-160 MG 08/29/2020 12:00:00 AM EST 1.0 {table t} active Bactrim DS 800-160 MG eCW1 ( [facility]) Sulfamethoxazole 800 MG / Trimethoprim 1 60 MG Oral Tablet [Bactrim] Bactrim DS 800-160 MG Bactrim DS 800-160 MG 07/01/2020 12:00:00 AM EST 1.0 {table t} active Bactrim DS 800-160 MG eCW1 ( [facility]) Sulfamethoxazole 800 MG / Trimethoprim 1 60 MG Oral Tablet [Bactrim] Bactrim DS 800-160 MG Bactrim DS 800-160 MG 07/01/2020 12:00:00 AM EST 1.0 {table t} suspended Bactrim DS 800-160 MG eCW1 ( [facility]) Sulfamethoxazole 800 MG / Trimethoprim 1 60 MG Oral Tablet [Bactrim] Bactrim DS 800-160 MG Bactrim DS 800-160 MG 07/01/2020 12:00:00 AM EST 1.0 {table t} active Bactrim DS 800-160 MG eCW1 ( [facility]) Sulfamethoxazole 800 MG / Trimethoprim 1 60 MG Oral Tablet [Bactrim] Bactrim DS 800-160 MG Bactrim DS 800-160 MG 07/01/2020 12:00:00 AM EST 1.0 {table t} suspended Bactrim DS 800-160 MG eCW1 ( [facility]) Sulfamethoxazole 800 MG / Trimethoprim 1 60 MG Oral Tablet [Bactrim] Bactrim DS 800-160 MG Bactrim DS 800-160 MG 07/01/2020 12:00:00 AM EST 1.0 {table t} suspended Bactrim DS 800-160 MG eCW1 ( [facility]) atorvastatin 20 MG Oral Tablet [Lipitor] Lipitor 20 MG Lipit or 20 MG 04/26/2020 12:00:00 AM EDT 1.0 {tablet} active Li pitor 20 MG eCW1 ([facility]) atorvastatin 10 MG Oral Tablet [Lipitor] Lipitor 10 MG Lipit or 10 MG 04/26/2020 12:00:00 AM EDT 1.0 {tablet} active Li pitor 10 MG eCW1 ([facility]) atorvastatin 20 MG Oral Tablet [Lipitor] Lipitor 20 MG Lipit or 20 MG 04/26/2020 12:00:00 AM EDT 1.0 {tablet} active Li pitor 20 MG eCW1 ([facility]) atorvastatin 10 MG Oral Tablet [Lipitor] Lipitor 10 MG Lipit or 10 MG 04/26/2020 12:00:00 AM EDT 1.0 {tablet} active Li pitor 10 MG eCW1 ([facility]) atorvastatin 10 MG Oral Tablet [Lipitor] Lipitor 10 MG Lipit or 10 MG 04/26/2020 12:00:00 AM EDT 1.0 {tablet} active Li pitor 10 MG eCW1 ([facility]) atorvastatin 10 MG Oral Tablet [Lipitor] Lipitor 10 MG Lipit or 10 MG 04/26/2020 12:00:00 AM EDT 1.0 {tablet} active Li pitor 10 MG eCW1 ([facility]) atorvastatin 20 MG Oral Tablet [Lipitor] Lipitor 20 MG Lipit or 20 MG 04/26/2020 12:00:00 AM EDT 1.0 {tablet} active Li pitor 20 MG eCW1 ([facility]) Insurance Providers Payer name Policy type / Coverage type Policy ID Covered green party ID Covered green party's relationship to falcon Policy Falcon Plan Information MEDICARE [id number] SP [id number] [facility]IC[facility] [id number] SP [id number] MEDICARE [id number] Retired [id number] U01 [facility] [id number] Retired [id number] MEDICARE [id number] Retired [id number] U01 [facility]IC[facility]NATIONAL [facility] [place] [id number] SP [id number] SELF PAY [id number] SP [id number] SELF PAY [id number] [facility] [id number] SP [id number] [facility] [id number] [facility] O UNAVAILABLE S UNAVAILABLE Problems, Conditions, and Diagnoses Code Display Name Description Problem Type Effective Dates Data Source(s) R97.20 Elevated PSA Elevated prostate specific antigen [PSA] Problem 08/29/2020 12:00:00 AM EST eCW1 ([facility]) E66.01 Morbid obesity Morbid obesity due to excess calories P roblem 08/29/2020 12:00:00 AM EST eCW1 ([facility]) N39.0 Urinary tract infectious disease UTI (urinary tract in fection) Problem 08/19/2020 12:00:00 AM EST eCW1 ([facility]) Z01.818 Pre-procedure evaluation check Preop testing Problem 08/19/2020 12:00:00 AM EST eCW1 ([facility]) C61 Prostate cancer Prostate cancer Problem 08/13/2020 12:0 0:00 AM EST eCW1 ([facility]) R97.20 Elevated PSA Elevated PSA Problem 08/06/2020 12:00:00 A M EST eCW1 ([facility]) M25.561 [id number] Right medial knee pain Problem 07/26/2020 12 :00:00 AM EST eCW1 ([facility]) R73.03 Prediabetes Prediabetes Problem 04/26/2020 12:00:00 AM EDT eCW1 ([facility]) Z68.34 Body mass index 30.00 to 34.99 Body mass index ( BMI) 34.0-34.9, adult Problem 04/26/2020 12:00:00 AM EDT eCW1 ([facility]) Z68.35 Obese class II Body mass index (BMI) of 35.0-35.9 in a dult Problem 07/26/2019 12:00:00 AM EST eCW1 ([facility]) Z68.35 Obese class II Body mass index (BMI) of 35.0-35.9 in a dult Problem 07/26/2019 12:00:00 AM EST eCW1 ([facility]) E78.5 Hyperlipidemia, unspecified HYPERLIPIDEMIA, UNSPECIFIE D Diagnosis 08/23/2020 12:48:00 PM EST [facility] I10 Essential (primary) hypertension ESSENTIAL (PRIMARY) H YPERTENSION Diagnosis 08/23/2020 12:48:00 PM EST [facility]. Z11.59 Encounter for screening for other viral diseases ENCOUNTER FOR SCREENING FOR OTHER VIRAL DISEASES Diagnosis 06/14/2020 09:00:00 AM EST [facility] Z01.812 Encounter for preprocedural laboratory e xamination ENCOUNTER FOR PREPROCEDURAL LABORATORY EXAMINATION Diagnosis 06/14/2020 09:00:00 AM [facility] Z20.5 Contact with and (suspected) exposure to viral hepatitis CONTACT WITH AND (SUSPECTED) EXPOSURE TO VIRAL HEPATITIS Diagnosis 04/30/2020 08:05:[address] [facility] Z12.5 Encounter for screening for malignant ne oplasm of prostate ENCOUNTER FOR SCREENING FOR MALIGNANT NEOPLASM OF PROSTATE Diagnosis 0 08:05:00 AM [facility]. Results ID Date Data Source [id number] 08/30/2020 10:00:00 AM EST [facility] Name Value Range Interpretation Code Description Data Leonarda rce(s) Supporting Document(s) SARS coronavirus 2 RNA Not Detected [facility] This lab was ordered by [facility] and reported by [facility]. ID Date Data Source [id number] 08/23/2020 03:25:00 AM EST [facility]. CHEST - PA AND LATERALNo priors are avai lable for comparison. The lung sue are clear. Nofocal infiltrate or consolidation is identified. The cardiac silhouetteappears unremarkable. Osseous structures show degenerative changes.IMPRESSION: NO ACUTE PULMONARY FINDINGS.Examination dictated by BECCA Pham. Examination was reviewedwith Jermaine Patel MD, radiologist, at the time of this dictation.Dictated on 08/23/20 0325 by Jermaine Patel M.D.Transcribed on 08/26/20 0751 by Hilaria Alexanderign by Jermaine Patel M.D. on 08/26/20 0949Sign by: Jermaine Patel M.D. Name Value Range Interpretation Code Description Data Leonarda rce(s) Supporting Document(s) ID Date Data Source [id number] 08/26/2020 11:31:00 AM [facility]ONY [facility] 10,000 OR GANISM 1: Streptococcus anginosus group Name Value Range Interpretation Code Description Data Leonarda rce(s) Supporting Document(s) ID Date Data Source [id number] 08/23/2020 02:47:00 PM EST [facility] Is the patient on an Anticoagulant? (Y/N ): N Is the patient on an Anticoagulant? (Y/N ): N Name Value Range Interpretation Code Description Data Leonarda rce(s) Supporting Document(s) PROTHROMBIN TIME 11.6 Seconds 9.4-12.5 Normal (applies to non-n umeric results) [facility] INR 1.07 Normal (applies to non-numeric results) [facility] The use of the INR is restricted to yari ents on stable oralanticoagulant.Therapeutic Range: 2.0-3.0High Risk Values: 2.5-3.5 ID Date Data Source [id number] 08/23/2020 02:47:00 PM EST [facility] Is the patient on an Anticoagulant? (Y/N ): N Is the patient on an Anticoagulant? (Y/N ): N Name Value Range Interpretation Code Description Data Leonarda rce(s) Supporting Document(s) PARTIAL THROMBOPLASTIN TIME 34.2 Seconds 25.1-36.5 Norm al (applies to non- numeric results) [facility] The above reference range for aPTT is ba sed on patients thatare NOT on Heparin Therapy. ID Date Data Source [id number] 08/23/2020 02:32:00 PM EST [facility] Name Value Range Interpretation Code Description Data Leonarda rce(s) Supporting Document(s) GLUCOSE 97 mg/dL 74-106 Normal (applies to non-numeric resul ts) [facility] BLOOD UREA NITROGEN 25 mg/dL 7-18 Above high normal [facility] CREATININE 1.14 mg/dL 0.55-1.30 Normal (applies to non-numeric resul ts) [facility] It has been demonstrated with our toñito betancourt's methodologyfor CREATININE testing that patients on N-Acetylcysteineand/or Metamizole (Dipyrone) therapy will show falselydepressed values. eGFR 65 mL/min >60 Normal (applies to non-numeric resul ts) [facility] SODIUM 138 mmol/L 136-145 Normal (applies to non-numeric resul ts) [facility] POTASSIUM 4.6 mmol/L 3.5-5.1 Normal (applies to non-numeric resul ts) [facility] CHLORIDE 101 mmol/L 96-109 Normal (applies to non-numeric resul ts) [facility] CARBON DIOXIDE 30 mmol/L 21-32 Normal (applies to non-numeric r esults) [facility] ANION GAP 7 mmol/L 3-11 Normal (applies to non-numeric resul ts) [facility] CALCIUM 10.2 mg/dL 8.1-9.7 Above high normal [facility] ID Date Data Source [id number] 08/23/2020 02:08:00 PM EST [facility] Name Value Range Interpretation Code Description Data Leonarda rce(s) Supporting Document(s) WHITE BLOOD COUNT 8.87 x10E3/ul 3.80-10.80 Normal (applie s to non-numeric results) [facility] RED BLOOD COUNT 5.22 x10E6/ul 4.69-6.13 Normal (applies to non-n umeric results) [facility] HEMOGLOBIN 16.0 g/dl 14.1-18.1 Normal (applies to non-numeric resul ts) [facility] HEMATOCRIT 48.5 % 43.5-53.7 Normal (applies to non-numeric resul ts) [facility] MEAN CELL VOLUME 93 fl 80-97 Normal (applies to non-numeric results) [facility] MEAN CORPUSCULAR HEMOGLOBIN 30.7 pg 27.0-31.2 Norm al (applies to non-numeric results) [facility] MEAN CORPUSCULAR HGB CONC 33.0 g/dl 31.8-35.4 Normal (applies to non-numeric results) [facility] RBC DISTR.WIDTH 12.5 % 9.0-16.0 Normal (applies to non-numeric results) [facility] PLATELET COUNT 264 x10E3/ul 150-400 Normal (applies to non-numeric results) [facility] MEAN PLATELET VOLUME 10.8 fl 7.2-11.1 Normal (applies to non-num kristen results) [facility]. GRAN % 54.6 % 37.0-74.9 Normal (applies to non-numeric resul ts) [facility] LYMPH % 28.6 % 10.0-50.0 Normal (applies to non-numeric resul ts) [facility] MONO % 10.1 % 0.0-12.0 Normal (applies to non-numeric resul ts) [facility]. EOS % 5.1 % 0.0-7.0 Normal (applies to non-numeric resul ts) [facility]. BASO % 0.6 % 0.0-2.5 Normal (applies to non-numeric resul ts) [facility]. IMMATURE GRAN % 1.0 % 0-2 Normal (applies to non-numeric results) [facility]. NUCLEATED RBC % 0 % 0-0 Normal (applies to non-numeric results) [facility]. GRAN # 4.8 X10E3/ul 2.0-6.9 Normal (applies to non-numeric res ults) [facility]. LYMPH # 2.5 X10E3/ul 0.6-3.4 Normal (applies to non-numeric res ults) [facility]. MONO # 0.9 X10E3/ul 0.0-0.9 Normal (applies to non-numeric res ults) [facility]. EOS # 0.5 X10E3/ul 0.0-0.7 Normal (applies to non-numeric res ults) [facility]. BASO # 0.1 X10E3/ul 0.0-0.2 Normal (applies to non-numeric res ults) [facility]. IG # 0.1 X10E3/ul 0.0-0.5 Normal (applies to non-numeric res ults) [facility] NUCLEATED RBC # 0.0 X10E3/ul 0.0-0.5 Normal (applies to non-numeri c results) [facility] ID Date Data Source BASIC METABOLIC PROFILE 08/23/2020 12:00:00 AM EST eCW1 ([facility]) Name Value Range Interpretation Code Description Data Leonarda rce(s) Supporting Document(s) 97 74-106 GLUCOSE eCW1 ([facility]) 1.14 0.55-1.30 CREATININE eCW1 ([facility]) 65 >60 eGFR eCW1 ([facility]) 25 7-18 BLOOD UREA NITROGEN eCW1 ([facility] 138 136-145 SOD[facility]UM [facility] 10.2 8.1-9.7 CALCIUM eCW1 ([facility]) 30 21-32 CARBON DIOXIDE eCW1 ([facility]) 4.6 3.5-5.1 POTASSIUM eCW1 ([facility]) 101 96-109 CHLORIDE eCW1 ([facility]) ID Date Data Source COMPLETE BLOOD COUNT 08/23/2020 12:00:00 AM EST eCW1 ([facility]) Name Value Range Interpretation Code Description Data Leonarda rce(s) Supporting Document(s) 5.22 4.69-6.13 [facility] 8.87 3.80-10.80 WHITE BLOOD COUNT eCW1 ([facility] Adolescents) 16.0 14.1-18.1 HEMOGLOBIN eCW1 ([facility]) 48.5 43.5-53.7 HEMATOCRIT eCW1 ([facility]) 30.7 27.0-31.2 MEAN CORPUSCULAR HEMOGLOB IN eCW1 ([facility]) 93 80-97 MEAN CELL VOLUME eCW1 ([facility]) 33.0 31.8-35.4 MEAN CORPUSCULAR HGB CONC eCW1 ([facility]) 12.5 9.0-16.0 RBC DISTR.WIDTH eCW1 ([facility]) 10.8 7.2-11.1 MEAN PLATELET VOLUME eCW1 ([facility] 264 150-400 PLATELET COUNT eCW1 ([facility]) 5.1 0.0-7.0 EOS % [facility] 28.6 10.0-50.0 LYMPH % eCW1 ([facility]) 54.6 37.0-74.9 GRAN % eCW1 ([facility]) 10.1 0.0-12.0 MONO % [facility]CW1 [facility] 0.6 0.0-2.5 BASO % [facility]CW1 [facility] 0.9 0.0-0.9 MONO # eCW1 ([facility]) 2.5 0.6-3.4 LYMPH # eCW1 ([facility]) 4.8 2.0-6.9 GRAN # [facility]CW1 [facility] 0.1 0.0-0.2 BASO # eCW1 [facility] 0.5 0.0-0.7 EOS # eCW1 ([facility]) ID Date Data Source Glucose, cholestech machine 07/26/2020 12:00:00 AM EST eCW1 ([facility]) Name Value Range Interpretation Code Description Data Leonarda rce(s) Supporting Document(s) 143 glucose eCW1 ([facility]) ID Date Data Source Hemoglobin A1c 07/26/2020 12:00:00 AM EST eCW1 ([facility]) Name Value Range Interpretation Code Description Data Leonarda rce(s) Supporting Document(s) Hemoglobin A1c/Hemoglobin.total in Blood 6.4 Hemoglobin A1c eCW1 ([facility]) ID Date Data Source Lipid Panel And Chol/HDL Ratio 07/26/2020 12:00:00 AM EST eC W1 ([facility]) Name Value Range Interpretation Code Description Data Leonarda rce(s) Supporting Document(s) Cholesterol [Mass/volume] in Serum or Plasma 209 Cholesterol, Total eCW1 ([facility]) Triglyceride [Mass/volume] in Serum or Plasma 135 Triglycerides eCW1 ([facility]) Cholesterol in LDL [Mass/volume] in Serum or Plasma by calculation 153 LDL Cholesterol Calc eCW1 ([facility]) Cholesterol in VLDL [Mass/volume] in Serum or Plasma by calculation 180 VLDL Cholesterol Randall eCW1 ([facility]) Cholesterol in HDL [Mass/volume] in Serum or Plasma 29 HDL Cholesterol eCW1 ([facility]) Cholesterol.total/Cholesterol in HDL [Mass Ratio] in Serum or Plasm a 7.2 T. Chol/HDL Ratio eCW1 ([facility]) ID Date Data Source URINE CULTURE 07/01/2020 12:00:00 AM EST eCW1 ([facility]) Name Value Range Interpretation Code Description Data Leonarda rce(s) Supporting Document(s) URINE CULTURE eCW1 ([facility]) ID Date Data Source UA URINALYSIS 07/01/2020 12:00:00 AM EST eCW1 ([facility]) Name Value Range Interpretation Code Description Data Leonarda rce(s) Supporting Document(s) UA URINALYSIS [facility] ([facility]) ID Date Data Source [id number] 05/15/2020 10:55:00 AM EDT [facility] Name Value Range Interpretation Code Description Data Leonarda rce(s) Supporting Document(s) Urine Culture [facility] ID Date Data Source [id number] 05/13/2020 08:19:00 PM EDT [facility] Name Value Range Interpretation Code Description Data Leonarda rce(s) Supporting Document(s) Color,Urine Yellow Normal (applies to non-numeric resu lts) [facility] Clarity,Urine Clear [facility] Specific [place],Urine 1.001-1.030 Normal (applies to non- numeric results) [facility] PH,Urine 5.0-8.0 Normal (applies to non-numeric resul ts) [facility] Protein,Urine Negative Normal (applies to non-numeric re sults) [facility] Glucose,Urine (UA) Negative Normal (applies to non-numer ic results) [facility] Ketones,Urine Negative [facility] Blood,Urine Negative Normal (applies to non-numeric resu lts) [facility] Bilirubin,Urine Negative Normal (applies to non-numeric results) [facility] Urobilinogen,Urine Norm 0.2-1 Normal (applies to non-numer ic results) [facility] Leukocyte Esterase,Urine Negative Normal (applies to non -numeric results) [facility] Nitrite,Urine Negative Normal (applies to non-numeric re sults) [facility] RBC,Auto Urine 0-2 Normal (applies to non-numeric r esults) [facility] WBC Urine Auto 0-2 Normal (applies to non-numeric r esults) [facility] Casts,Hyaline,Urine Auto 0-2 Normal (applies to non -numeric results) [facility] Bacteria Urine Auto None Seen Normal (applies to non-nume kerry results) [facility] Epithelial Cell Ur Auto None-Few Normal (applies to non- numeric results) [facility] ID Date Data Source [id number] 05/04/2020 06:34:00 PM EDT [facility] Name Value Range Interpretation Code Description Data Leonarda rce(s) Supporting Document(s) Total Prostate Specific Ag 0.0-4.0 Above high normal [facility] Twin ECLIA methodology. According to t he [employer], Serum PSA should decrease and remain at undetectable levels after radical prostatectomy. The AUA defines biochemical recurrence as an initial PSA value 0.2 ng/mL or greater followed by a subsequent confirmatory PSA value 0.2 ng/mL or greater. Values obtained with different assay methods or kits cannot be used interchangeably. Results cannot be interpreted as absolute evidence of the presence or absence of malignant disease. PSA Reflex Criteria . Normal (applies to non-nume kerry results) [facility] The percent free PSA is performed on a r eflex basis only when the total PSA is between 4.0 and 10.0 ng/mL. Performed at: RN - [facility] [address], [place], [place] [id number] Mobile Sales Consultant: Miroslava Marie MD, Phone: [phone] Free Prostate Specific Ag N/A Normal (applies to no n-numeric results) [facility] Twin ECLIA methodology. % Free Prostate Specific Ag . Normal (applies to non-numeric results) [facility] The table below lists the probability of prostate cancer for men with non- suspicious SEBASTIÁN results and total PSA between 4 and 10 ng/mL, by patient age (Mer et al, JOCELYN 1998, 279:1542). % Free PSA 50- 64 yr 65-75 yr 0.00-10.00% 56% 55% 10.01-15.00% 24% 35% 15.01-20.00% 17% 23% 20.01-25.00% 10% 20% >25.00% 5% 9% Please note: Mer et al did not make specific recommendations regarding the use of percent free PSA for any other population of men. ID Date Data Source [id number] 05/01/2020 12:27:00 PM EDT [facility] Name Value Range Interpretation Code Description Data Leonarda rce(s) Supporting Document(s) HEP C VIRUS AB 0.2 0.0-0.9 Normal (applies to non-numeric r esults) [facility] INFCE Result Units: s/co ratio Negative: < 0.8 Indeterminate: 0.8 - 0.9 Positive: > 0.9 The CDC recommends that a positive HCV antibody result be followed up with a HCV Nucleic Acid Amplification test (103388).Performed at: RN - [facility] [place] [id number] Director: Miroslava Marie MD, Phone: [phone] ID Date Data Source [id number] 04/30/2020 09:19:00 AM EDT [facility] Name Value Range Interpretation Code Description Data Leonarda rce(s) Supporting Document(s) GLUCOSE 162 mg/dL 74-106 Above high normal [facility] BLOOD UREA NITROGEN 19 mg/dL 7-18 Above high normal [facility] CREATININE 1.01 mg/dL 0.55-1.30 Normal (applies to non-numeric resul ts) [facility] It has been demonstrated with our toñito betancourt's methodologyfor CREATININE testing that patients on N-Acetylcysteineand/or Metamizole (Dipyrone) therapy will show falselydepressed values. eGFR 75 mL/min >60 Normal (applies to non-numeric resul ts) [facility] SODIUM 140 mmol/L 136-145 Normal (applies to non-numeric resul ts) [facility] POTASSIUM 4.2 mmol/L 3.5-5.1 Normal (applies to non-numeric resul ts) [facility] CHLORIDE 103 mmol/L 96-109 Normal (applies to non-numeric resul ts) [facility] CARBON DIOXIDE 31 mmol/L 21-32 Normal (applies to non-numeric r esults) [facility] ANION GAP 6 mmol/L 3-11 Normal (applies to non-numeric resul ts) [facility] CALCIUM 9.9 mg/dL 8.1-9.7 Above high normal [facility] ALBUMIN 4.0 gm/dL 3.4-5.0 Normal (applies to non-numeric resul ts) [facility] TOTAL PROTEIN 7.1 g/dL 6.4-8.2 Normal (applies to non-numeric re sults) [facility] BILIRUBIN,TOTAL 0.8 mg/dL 0.2-1.0 [address] OBX record [facility] It has been demonstrated use of our TOTA L BILIRUBIN assay isnot recommended for patients undergoing treatment withELTROMBOPAG due to the potential for falsely elevatedresults. SGOT/AST 18 U/L 15-[address]X record [facility] SGPT/ALT 32 U/L 12-78 Normal (applies to non-numeric resul ts) [facility] ALK. PHOSPHATASE 93 U/L 45-117 Normal (applies to non-numeric results) [facility] ID Date Data Source [id number] 04/30/2020 09:19:00 AM EDT [facility] Name Value Range Interpretation Code Description Data Leonarda rce(s) Supporting Document(s) THYROID STIMULATING HORMONE 2.48 uIU/mL 0.36-3.74 Norm al (applies to non-numeric results) [facility] ID Date Data Source [id number] 04/30/2020 09:19:00 AM EDT [facility] Name Value Range Interpretation Code Description Data Leonarda rce(s) Supporting Document(s) PROSTATE SPECIFIC ANTIGEN 6.63 ng/mL 0.0-4.0 [facility] PSA should not be used alone as a cancer screening test. Methodology: As of February 07, 2012.Vatlerta Chemiluminescent Immunoassay basedon LOCI technology.Values obtained with different assay methods should not beused interchangeably. ID Date Data Source [id number] 04/30/2020 08:38:00 AM EDT [facility] Name Value Range Interpretation Code Description Data Leonarda rce(s) Supporting Document(s) WHITE BLOOD COUNT 7.78 x10E3/ul 3.80-10.80 Normal (applie s to non-numeric results) [facility] RED BLOOD COUNT 5.06 x10E6/ul 4.69-6.13 Normal (applies to non-n umeric results) [facility] HEMOGLOBIN 15.6 g/dl 14.1-18.1 Normal (applies to non-numeric resul ts) [facility] HEMATOCRIT 47.4 % 43.5-53.7 Normal (applies to non-numeric resul ts) [facility] MEAN CELL VOLUME 94 fl 80-97 Normal (applies to non-numeric results) [facility] MEAN CORPUSCULAR HEMOGLOBIN 30.8 pg 27.0-31.2 Norm al (applies to non-numeric results) [facility] MEAN CORPUSCULAR HGB CONC 32.9 g/dl 31.8-35.4 Normal (applies to non-numeric results) [facility] RBC DISTR.WIDTH 12.9 % 9.0-16.0 Normal (applies to non-numeric results) [facility] PLATELET COUNT 226 x10E3/ul 150-400 Normal (applies to non-numeric results) [facility] MEAN PLATELET VOLUME 10.5 fl 7.2-11.1 Normal (applies to non-num kristen results) [facility]. GRAN % 55.7 % 37.0-74.9 Normal (applies to non-numeric resul ts) [facility]. LYMPH % 29.3 % 10.0-50.0 Normal (applies to non-numeric resul ts) [facility]. MONO % 9.0 % 0.0-12.0 Normal (applies to non-numeric resul ts) [facility]. EOS % 4.4 % 0.0-7.0 Normal (applies to non-numeric resul ts) [facility]. BASO % 0.4 % 0.0-2.5 Normal (applies to non-numeric resul ts) [facility] IMMATURE GRAN % 1.2 % 0-2 Normal (applies to non-numeric results) [facility] NUCLEATED RBC % 0 % 0-0 Normal (applies to non-numeric results) [facility] GRAN # 4.3 X10E3/ul 2.0-6.9 Normal (applies to non-numeric res ults) [facility] LYMPH # 2.3 X10E3/ul 0.6-3.4 Normal (applies to non-numeric res ults) [facility] MONO # 0.7 X10E3/ul 0.0-0.9 Normal (applies to non-numeric res ults) [facility] EOS # 0.3 X10E3/ul 0.0-0.7 Normal (applies to non-numeric res ults) [facility] BASO # 0.0 X10E3/ul 0.0-0.2 Normal (applies to non-numeric res ults) [facility] IG # 0.1 X10E3/ul 0.0-0.5 Normal (applies to non-numeric res ults) [facility] NUCLEATED RBC # 0.0 X10E3/ul 0.0-0.5 Normal (applies to non-numeri c results) [facility] ID Date Data Source Urine dip 04/26/2020 12:00:00 AM EDT eCW1 ([facility]) Name Value Range Interpretation Code Description Data Leonarda rce(s) Supporting Document(s) - NIT eCW1 ([facility]) - Leuk eCW1 ([facility]) 0.2 URO eCW1 ([facility]) - KET eCW1 ([facility]) 15+ PRO eCW1 ([facility]) 1.025 SP GR eCW1 ([facility]) 5.0 pH eCW1 ([facility]) - Blood eCW1 ([facility]) Color eCW1 ([facility]) - Glucose eCW1 ([facility]) - PAULETTE eCW1 ([facility]) ID Date Data Source ekg 04/26/2020 12:00:00 AM EDT eCW1 ([facility]) Name Value Range Interpretation Code Description Data Leonarda rce(s) Supporting Document(s) ekg eCW1 ([facility]) Procedure Social History Code Duration Value Status Description Data Source(s ) Smoking 08/28/2020 12:00:00 AM EST Light tobacco smoker comple michael Light tobacco smoker eCW1 ([facility]) Smoking 08/13/2020 12:00:00 AM EST UNK completed eCW1 ([facility]) Smoking 08/13/2020 12:00:00 AM EST UNK completed eCW1 ([facility]) Smoking 08/13/2020 12:00:00 AM EST UNK completed eCW1 ([facility]) Smoking 08/06/2020 12:00:00 AM EST UNK completed eCW1 ([facility]) Smoking 07/26/2020 12:00:00 AM EST Light tobacco smoker comple michael Light tobacco smoker eCW1 ([facility]) Smoking 07/26/2020 12:00:00 AM EST Light tobacco smoker comple michael Light tobacco smoker eCW1 ([facility]) Smoking 07/01/2020 12:00:00 AM EST UNK completed eCW1 ([facility]) Smoking 05/02/2020 12:00:00 AM EDT Light tobacco smoker comple michael Light tobacco smoker eCW1 ([facility]) Smoking 05/02/2020 12:00:00 AM EDT Light tobacco smoker comple michael Light tobacco smoker eCW1 ([facility]) Smoking 05/02/2020 12:00:00 AM EDT Light tobacco smoker comple michael Light tobacco smoker eCW1 ([facility]) Smoking 04/26/2020 12:00:00 AM EDT Light tobacco smoker comple michael Light tobacco smoker eCW1 ([facility]) Smoking 12/26/2019 12:00:00 AM EDT Light tobacco smoker comple michael Light tobacco smoker eCW1 ([facility]) Vital Signs ID Date Data Source UNK Name Value Range Interpretation Code Description Data Source(s) Diastolic blood pressure 70 mm[Hg] 70 mm[Hg] eCW1 ([facility]) Systolic blood pressure 120 mm[Hg] 120 mm[Hg] e CW1 ([facility]) Body temperature 97.4 [degF] 97.4 [degF] eCW1 ( [facility]) Respiratory rate 18 /min 18 /min eCW1 ([facility]) Heart rate 96 /min 96 /min eCW1 ([facility]) Body mass index (BMI) [Ratio] 33.94 kg/m2 33.94 kg/m2 eCW1 ([facility]) Body height 65 [in_i] 65 [in_i] eCW1 ([facility]) Body weight 204 [lb_av] 204 [lb_av] eCW1 ([facility]) Diastolic blood pressure 92 mm[Hg] 92 mm[Hg] eCW1 ([facility]) Systolic blood pressure 158 mm[Hg] 158 mm[Hg] e CW1 ([facility]) Body temperature 97.2 [degF] 97.2 [degF] eCW1 ( [facility]) Respiratory rate 18 /min 18 /min eCW1 ([facility]) Heart rate 84 /min 84 /min eCW1 ([facility]) Body mass index (BMI) [Ratio] 33.74 kg/m2 33.74 kg/m2 eCW1 ([facility]) Body height 65 [in_i] 65 [in_i] eCW1 ([facility]) Body weight 202.8 [lb_av] 202.8 [lb_av] eCW1 ([facility]) Diastolic blood pressure 80 mm[Hg] 80 mm[Hg] eCW1 ([facility]) Systolic blood pressure 134 mm[Hg] 134 mm[Hg] e CW1 ([facility]) Body height 63.75 [in_i] 63.75 [in_i] eCW1 ([facility]) Body weight 202.8 [lb_av] 202.8 [lb_av] eCW1 ([facility]) Heart rate 60 /min 60 /min eCW1 ([facility]) Body mass index (BMI) [Ratio] 35.08 kg/m2 35.08 kg/m2 eCW1 ([facility]) Diastolic blood pressure 80 mm[Hg] 80 mm[Hg] eCW1 ([facility]) Systolic blood pressure 124 mm[Hg] 124 mm[Hg] e CW1 ([facility]) Body temperature 96.5 [degF] 96.5 [degF] eCW1 ( [facility]) Respiratory rate 18 /min 18 /min eCW1 ([facility]) Heart rate 71 /min 71 /min eCW1 ([facility]) Body mass index (BMI) [Ratio] 33.78 kg/m2 33.78 kg/m2 eCW1 ([facility]) Body height 65 [in_i] 65 [in_i] eCW1 ([facility]) Body weight 203 [lb_av] 203 [lb_av] eCW1 ([facility]) Diastolic blood pressure 94 mm[Hg] 94 mm[Hg] eCW1 ([facility]) Systolic blood pressure 130 mm[Hg] 130 mm[Hg] e CW1 ([facility]) Body height 63.75 [in_i] 63.75 [in_i] eCW1 ([facility]) Body weight 201.8 [lb_av] 201.8 [lb_av] eCW1 ([facility]) Heart rate 64 /min 64 /min eCW1 ([facility]) Body mass index (BMI) [Ratio] 34.91 kg/m2 34.91 kg/m2 eCW1 ([facility]) Diastolic blood pressure 90 mm[Hg] 90 mm[Hg] eCW1 ([facility]) Systolic blood pressure 130 mm[Hg] 130 mm[Hg] e CW1 ([facility]) Body height 63.75 [in_i] 63.75 [in_i] eCW1 ([facility]) Body weight 204 [lb_av] 204 [lb_av] eCW1 ([facility]) Heart rate 68 /min 68 /min eCW1 ([facility]) Body mass index (BMI) [Ratio] 35.29 kg/m2 35.29 kg/m2 eCW1 ([facility]) Diastolic blood pressure 97 mm[Hg] 97 mm[Hg] eCW1 ([facility]) Systolic blood pressure 157 mm[Hg] 157 mm[Hg] e CW1 ([facility]) Body height 63.75 [in_us] 63.75 [in_us] eCW1 ([facility]) Body weight Measured 205.2 [lb_av] 205.2 [lb_av ] eCW1 ([facility]) Heart rate 88 /min 88 /min eCW1 ([facility]) Body mass index (BMI) [Ratio] 35.50 kg/m2 35.50 kg/m2 eCW1 ([facility]) Patient Treatment Plan of Care Planned Activity Planned Date Details Description Data Source (s) Sulfamethoxazole 800 MG / Trimethoprim 160 MG Oral Tab let [Bactrim] 08/29/2020 12:00:00 AM EST eCW1 ([facility]) Sulfamethoxazole 800 MG / Trimethoprim 160 MG Oral Tab let [Bactrim] 07/01/2020 12:00:00 AM EST eCW1 ([facility]) atorvastatin 20 MG Oral Tablet [Lipitor] 04/26/2020 12:00:00 AM EDT eCW1 ([facility]) atorvastatin 20 MG Oral Tablet [Lipitor] 04/26/2020 12:00:00 AM EDT eCW1 ([facility]) atorvastatin 20 MG Oral Tablet [Lipitor] 04/26/2020 12:00:00 AM EDT eCW1 ([facility]) atorvastatin 10 MG Oral Tablet [Lipitor] 04/26/2020 12:00:00 AM EDT eCW1 ([facility])
[2020-09-04] MEDS ORDERED: LIDOCAINE 1% SDV 30ML VIAL As Ordered ONE (13:40)
[2020-09-04] MEDS ORDERED: BUPIVACAINE HCL 0.25% 30ML VIAL As Ordered ONE (13:40)
[2020-09-04] MEDS ORDERED: NS 1,000 ML IV SCH (14:02)
[2020-09-04] MEDS ORDERED: ACETAMINOPHEN TAB 650MG DOSE (2X325MG) PO PRN (14:15)
[2020-09-04] MEDS ORDERED: ONDANSETRON 4MG/2ML VIAL IV PRN ×2 (14:15→19:45)
[2020-09-04] MEDS ORDERED: PERCOCET 5MG/325MG TAB PO PRN ×2 (14:15)
[2020-09-04] MEDS ORDERED: MORPHINE 2 MG/ML 1ML VIAL (J2270) IV PRN (14:15)
--- NOTE | 2020-09-04 19:37 | ROOPDOC ---
[facility] Report Of Operation Report of Operation DATE OF PROCEDURE: 09/04/20 PREPROCEDURE DIAGNOSIS: Prostate cancer. POSTPROCEDURE DIAGNOSIS: Prostate cancer. PROCEDURE: Robotic-assisted laparoscopic radical prostatectomy with bilateral pelvic lymph node dissection. SURGEON: Kaity Arreola MD ASSOCIATE PROFESSOR OF MATHEMATICS: Lauren Sifuentes NP ANESTHESIA: General. OPERATIVE INDICATIONS: This is a 60 year old male with intermediate risk clinical T1c [place] 3+4 prostate cancer. After a discussion of the options for treatment, he elected to undergo the above procedure. DESCRIPTION OF PROCEDURE: The patient was brought to the operating room and general anesthesia was induced. Prophylactic antibiotics were infused. He was then placed in the dorsal lithotomy position and prepped and draped in the usual sterile fashion. At this point, a Anne catheter was inserted into the bladder and the balloon was filled with 10 mL of sterile water. We then made a midline incision just above the umbilicus for an 8 mm port. A Veress needle was utilized to achieve pneumoperitoneum. Next, an 8 mm port was inserted into the incision and subsequently a camera was inserted. There were no injuries from the Veress needle or initial trocar placement. At this point, we placed the remaining ports, including a 12 mm assistant cross country coach port and then three robotic ports in the usual configuration. Once all the ports were placed, the robot was docked. Lysis of adhesions between the sigmoid colon and abdominal wall was then performed. The bladder was then released from the anterior abdominal wall using electrocautery. Once the bladder was dropped, the fat overlying the prostate was cleared using electrocautery. The superficial dorsal vein was controlled with electrocautery. The endopelvic fascia was opened on both sides and the dorsal venous complex was cleared. Next, a #0 Vicryl [id number] stitch was placed around the dorsal venous complex. Once that was done, the bladder was opened and dissected away from the prostate. At this point, the prostate was lifted up. The vasa deferentia were identified in the midline. They were then ligated and transected. The seminal vesicles were also dissected off bilaterally. The rectum was safely mobilized away from the prostate. The neurovascular bundles were carefully dissected off bilaterally using cold scissors. Bilateral prostatic pedicles were taken using the SynchroSeal. The pedicles were carried towards the apex. After taking care of the pedicles and mobilizing the rectum off the prostate below, the prostate was only connected by the urethra. At this point, the dorsal venous complex was transected with electrocautery. The urethra was then opened and the catheter was withdrawn and the posterior urethra was transected, thus freeing the prostate. At this point, we checked for hemostasis and it did appear very good. Next, we performed bilateral pelvic lymph node dissection. This was done in a standard fashion. The limits of dissection were the iliac vein proximally, the obturator nerve distally, the pelvic sidewall laterally, and the bladder medially. All lymphatic tissue within these limits was removed. I performed the same procedure on both the right and left sides. Hemostasis was then obtained with bipolar electrocautery. The lymphatic packets were then placed in separate Endo Catch bags for future retrieval. Once hemostasis was confirmed, I then moved on to perform the vesicourethral anastomosis. This was performed with a Quill stitch in a running fashion. Once this was done, the final #[place] Anne catheter was placed. The balloon was filled with 15 mL of sterile water. Upon completion of the vesicourethral anastomosis, it was tested by filling the bladder with sterile saline water. The anastomosis appeared to be watertight. At this point, the prostate and seminal vesicles were placed in an Endo Catch bag for future retrieval. The robot was then undocked. A Dena fascial closure device was utilized to place a #0 Vicryl suture between the fascia of the 12 mm assistant cross country coach port. At this point, a Raymundo- Mukherjee drain was brought in through the left robotic port skin site and the drain was positioned anterior to the bladder. The drain was secured to the skin with #2-0 Ethilon suture. Next, all the remaining ports were removed and there did not appear to be any bleeding from any of the port sites. The prostate, as well as the lymphatic packets were then extracted from the camera port site after the skin was extended. The fascia in this incision was then closed with a running #0 Vicryl stitch. The previously placed #0 Vicryl free ties through the assistant cross country coach port were then tied down and all incisions were irrigated. Last, all of the incisions were closed with running subcuticular #4-0 Monocryl sutures. Local anesthesia was applied. Dermabond was then applied to the incisions. This marked the conclusion of the procedure. The patient was then taken out of the dorsal lithotomy position, awakened from anesthesia and transported to the recovery room in stable condition. ESTIMATED BLOOD LOSS: 350 mL. COMPLICATIONS: None. SPECIMENS: Prostate and seminal vesicles, right pelvic lymph nodes, left pelvic lymph nodes. PLAN: The patient will be admitted to the hospital postoperatively, and he will likely be discharged home within the next 1-2 days. KAITY ARREOLA MD Sep 04, 2020 14:16
[2020-09-04] MEDS ORDERED: LR 1,000 ML IV SCH (19:45)
[2020-09-04] MEDS ORDERED: fentaNYL 100 MCG/2 ML INJECTION (J3010) IV PRN (19:45)
[2020-09-04] MEDS ORDERED: oxyCODONE 5MG TAB PO PRN (19:45)
[2020-09-04 20:08] LABS: HEMATOCRIT 40.5 % (42.0-52.0); HEMOGLOBIN 13.1 g/dl (13.5-17.5); MEAN CORPUSCULAR HEMOGLOBIN 29.9 pg (27.0-33.0); MEAN CORPUSCULAR HGB CONC 32.3 g/dl (32.0-36.5); MEAN CORPUSCULAR VOLUME 92.5 fl (80.0-96.0); PLATELET COUNT, AUTOMATED 215 10^3/uL (150-450); RED BLOOD COUNT 4.38 10^6/uL (4.30-6.10); WHITE BLOOD COUNT 7.9 10^3/uL (4.0-10.0)
[2020-09-04 20:40] LABS: CALCIUM LEVEL 8.3 MG/DL (8.8-10.2); CREATININE FOR GFR 1.37 MG/DL (0.70-1.30); GLOMERULAR FILTRATION RATE 56.2 (>49)
[2020-09-04 21:00] VITALS: BP 144/88
[2020-09-04 21:30] VITALS: BP 142/88
[2020-09-04] MEDS: ceFAZolin SOD 1 GM in D5W MINI-BAG PLUS 50 ML IV SCH (21:49)
[2020-09-04] MEDS: DOCUSATE SODIUM 100MG CAPSULE PO SCH (21:50)
[2020-09-04] MEDS: HEPARIN SOD (PORCINE) 5000UNITS/ML 1ML VIAL/SYRINGE SC SCH (21:51)
[2020-09-04 22:30] VITALS: BP 149/87
[2020-09-04 23:30] VITALS: BP 138/68
[2020-09-05 00:30] VITALS: BP 135/85
[2020-09-05 06:00] VITALS: BP 145/88
[2020-09-05] MEDS: ceFAZolin SOD 1 GM in D5W MINI-BAG PLUS 50 ML IV SCH (06:27)
[2020-09-05] MEDS: HEPARIN SOD (PORCINE) 5000UNITS/ML 1ML VIAL/SYRINGE SC SCH ×2 (06:27→14:33)
--- NOTE | 2020-09-05 08:10 | IPNPDOC ---
Subjective Review oF Systems Chief Complaint The patient is a 60-year-old male admitted with a reason for visit of Prostate Cancer. Events since Last Encounter No acute events o/n. Good pain control. No n/v. Has not ambulated yet. Tolerating regular diet. No f/c/ns. Objective Physical Examination General Exam: Alert, Cooperative, No Acute Distress ABDOMEN EXAM: Soft, Tenderness (mild), Other (incisions clean/dry/intact; SOFIE w/ serosanguinous output) Neuro Exam: Normal Speech Psych Exam: Mental status NL, Mood NL Other physical findings catheter draining clear urine Vital Signs/I&O Vital Signs Date Time Temp Pulse Resp B/P (MAP) Pulse Ox O2 Delivery O2 Flow Rate FiO2 09/05/20 06:00 97.7 73 18 145/88 (107) 99 Nasal Cannula 2.0 I&O- Last 24 Hours up to 6 AM 09/05/20 06:00 Intake Total 2830 ml Output Total 490 ml Balance 2340 ml Laboratory Data Labs 24H Laboratory Tests 2 09/04/20 19:42: Nucleated Red Blood Cells % (auto) 0.0, Anion Gap 12, Glomerular Filtration Rate 56.2, Calcium Level 8.3L CBC/BMP Laboratory Tests 09/04/20 19:42 Assessment/Plan Date Seen The patient was seen on 09/05/20. Patient Summary This is a 60 y/o M POD1 s/p RALP w/ BPLND. Labs pending. Patient doing well this morning. Plan/VTE VTE Prophylaxis Ordered?: Yes VTE Exclusion Mechanical Proph: N/A:VTE Prophy Ordered VTE Exclusion Pharmacological: N/A:VTE Prophy Ordered Plan/Urinary Catheter Urinary Catheter: Other Catheter: (catheter will need to stay in for at least 1 wk) Plan - d/c IVF - strict I/Os - percocet prn pain - continue home meds - SQH - SCDs when in bed - ambulate - incentive spirometry - regular diet - possible discharge home later today w/ KAITY Seals MD Sep 05, 2020 08:09
[2020-09-05] MEDS: DOCUSATE SODIUM 100MG CAPSULE PO SCH (08:50)
[2020-09-05] MEDS ORDERED: ATORVASTATIN 20 MG TAB PO SCH (09:00)
[2020-09-05] MEDS ORDERED: lisinopriL 40 MG TAB PO SCH (09:00)
[2020-09-05 09:15] LABS: HEMATOCRIT 38.9 % (42.0-52.0); HEMOGLOBIN 12.4 g/dl (13.5-17.5); MEAN CORPUSCULAR HEMOGLOBIN 29.9 pg (27.0-33.0); MEAN CORPUSCULAR HGB CONC 31.9 g/dl (32.0-36.5); MEAN CORPUSCULAR VOLUME 93.7 fl (80.0-96.0); PLATELET COUNT, AUTOMATED 191 10^3/uL (150-450); RED BLOOD COUNT 4.15 10^6/uL (4.30-6.10); WHITE BLOOD COUNT 7.7 10^3/uL (4.0-10.0)
[2020-09-05 09:24] LABS: BLOOD UREA NITROGEN 20 MG/DL (7-18); CALCIUM LEVEL 8.8 MG/DL (8.8-10.2); CARBON DIOXIDE LEVEL 25 MEQ/L (21-32); CHLORIDE LEVEL 100 MEQ/L (98-107); CREATININE FOR GFR 1.09 MG/DL (0.70-1.30); GLOMERULAR FILTRATION RATE > 60.0 (>49); GLUCOSE, FASTING 194 MG/DL (70-100); POTASSIUM SERUM 5.1 MEQ/L (3.5-5.1); SODIUM LEVEL 135 MEQ/L (136-145)
[2020-09-05 14:00] VITALS: BP 132/89
[2020-09-05] MEDS ORDERED: PERCOCET PO (16:08)
[2020-09-05] MEDS ORDERED: CIPR-249 PO (16:08)
[2020-09-05] MEDS ORDERED: DOK1CAP7 PO (16:08)
--- NOTE | 2020-09-06 08:43 | DSES ---
DISCHARGE SUMMARY DATE OF ADMISSION: 09/04/2020 DATE OF DISCHARGE: 09/05/2020 ADMISSION DIAGNOSIS: Prostate cancer. DISCHARGE DIAGNOSIS: Prostate cancer. ADMITTING PHYSICIAN: Frederick Strickland MD. DISCHARGING PHYSICIAN: Frederick Strickland MD. PROCEDURES PERFORMED: Robotic-assisted laparoscopic radical prostatectomy and bilateral pelvic lymph node dissection on September 04, 2020. HISTORY OF PRESENT ILLNESS: This is a 60-year-old male with prostate cancer who elected to undergo the above listed procedures for treatment. He was admitted to the hospital postoperatively. HOSPITALIZATION COURSE: The patient was admitted to the hospital on September 04, 2020, after undergoing a robotic radical prostatectomy and pelvic lymph node dissection. His postoperative course was unremarkable. On postoperative day one, all of his lab work was within normal limits. He was ambulating well throughout postoperative day one. His pain was well controlled with oral pain medication. His diet was advanced throughout the day on postoperative day one, and he tolerated a regular diet without difficulty. He had excellent urine output from his catheter and normal output from his Raymundo-Mukherjee drain. On postoperative day one, he was deemed ready for discharge home. His Raymundo-Mukherjee drain was removed prior to discharge, and he was discharged home with a catheter in place. He will follow up in the Urology Clinic in approximately one week for catheter removal and to discuss pathology results.
== END 2020-09-05 17:15 | disposition home or self-care (01) | DRG 708 ==
LOC: M OR 10:50 → M MS5PR 21:01
PROVIDERS: ADMIT Urology; ATTEND Urology
PROC: 07BC4ZX Excision of Pelvis Lymphatic, Percutaneous Endoscopic Approach, Diagnostic (ICD-10-PCS; 2020-09-04)
PROC: 8E0W4CZ Robotic Assisted Procedure of Trunk Region, Percutaneous Endoscopic Approach (ICD-10-PCS; 2020-09-04)
PROC: 0VT04ZZ Resection of Prostate, Percutaneous Endoscopic Approach (ICD-10-PCS; principal; 2020-09-04 12:15)
DX: C61 Malignant neoplasm of prostate (principal); I10 Essential (primary) hypertension; E78.5 Hyperlipidemia, unspecified; R73.03 Prediabetes; Z79.899 Other long term (current) drug therapy